=== PATIENT | male | born 1970 | race Caucasian/White ===

== ENCOUNTER 2021-06-11 07:21 | Outpatient (CLI) | payer BC ==
[2021-06-11] MEDS ORDERED: OMNIPAQUE 350 MG/ML, 100ML BOTTLE ONE (08:30)
== END 2021-06-11 23:59 | disposition home or self-care (01) ==
LOC: CFH 07:21
PROVIDERS: ATTEND Nurse Practitioner
DX: N28.1 Cyst of kidney, acquired (principal); R59.1 Generalized enlarged lymph nodes; R91.8 Other nonspecific abnormal finding of lung field; Q89.09 Congenital malformations of spleen; K76.89 Other specified diseases of liver
CPT/HCPCS: 74177; Q9967